=== PATIENT | female | born 1950 | race Caucasian/White ===

== ENCOUNTER 2022-02-24 12:13 | Outpatient (REF) | payer MEDICARE, OTHER, SELFPAY ==
[2022-02-24 12:32] LABS: MANUAL DIFF FLAG NO
[2022-02-24 13:22] LABS: Basophils Percent Auto 0.4 % (0-2); Eosinophils Percent Auto 0.2 % (0-4); Hemoglobin 12.6 g/dl (12.0-16.0); Imm Gran Abs Auto 0.01 X10*3/uL (0.00-0.03); Imm Gran Pct Auto 0.2 % (0.0-0.4); Lymphocytes Absolute Auto 1.6 X10*3/uL (1.2-4.9); Lymphocytes Percent Auto 34.4 % (20-40); Mean Corpuscular HGB Conc 31.5 g/dl (31.0-35.0); Mean Corpuscular Volume 95.2 fL (80.0-98.0); Mean Platelet Volume 9.6 fL (9.4-12.3); Monocytes Absolute Auto 0.4 X10*3/uL (0.1-1.2); Monocytes Percent Auto 7.6 % (2-11); Neutrophils Absolute Auto 2.7 x10*3/uL (2.0-8.3); Neutrophils Percent Auto 57.2 % (45-73); Platelet Count 256 X10*3/uL (160-400); Red Cell Distribution Width 13.6 % (11.0-16.0); White Blood Count 4.7 X10*3/uL (4.8-10.8)
[2022-02-24 13:41] LABS: Anion Gap 12 (12-20); Blood Urea Nitrogen 11 mg/dL (9-16); Calcium 8.9 mg/dL (8.4-10.2); Carbon Dioxide 29 mmol/L (22-29); Chloride 104 mmol/L (96-108); Estimated Glomerular Filt Rate > 60; Glucose Random 76 mg/dL (60-115); Rheumatoid Factor < 15.0 IU/mL (<15.0); Sodium 140 mmol/L (135-145)
[2022-02-24 14:01] LABS: Erythrocyte Sedimentation Rate 10 MM/HR (0-20)
[2022-02-25 08:05] LABS: Syphilis Screen Nonreactive (Nonreactive)
[2022-02-26 08:51] LABS: Lyme Abs Screen <0.90 index
[2022-02-28 12:37] LABS: IgA 56 mg/dL (70-320); IgG 582 mg/dL (600-1540); IgM 394 mg/dL (50-300)
[2022-02-28 14:37] LABS: Anti Nuclear Antibody Screen NEGATIVE (NEGATIVE)
== END 2022-02-24 12:14 | disposition home or self-care (01) ==
LOC: HO.LAB 12:13
PROVIDERS: Visit Provider Psychiatry & Neurology Neurology
DX: G37.9 Demyelinating disease of central nervous system, unspecified (principal)
CPT/HCPCS: 36415; 80048; 82784; 85025; 85652; 86038; 86039; 86431; 86617; 86618; 86780

== ENCOUNTER 2022-04-20 06:55 | Outpatient (REF) | payer MEDICARE, OTHER, SELFPAY ==
[2022-04-20] VITALS (7 sets, daily range): BP systolic 112–127; BP diastolic 58–81; PULSE 56–65; RESP 16; TEMP 36.7–37.2; O2SAT 97–98; BMI 23.8
[2022-04-20 09:37] LABS: CSF Appearance Clear, Colorless; CSF Tube # 1
[2022-04-20 09:47] LABS: Glucose CSF 62 mg/dL; Total Protein CSF 51.8 mg/dL (15-45)
[2022-04-20 11:40] LABS: Appearance CSF CLEAR; CSF Tube # 4; Color CSF COLORLESS; Red Blood Cell CSF 0 MM*3; White Blood Cell CSF 0 MM*3
[2022-04-21 07:10] LABS: Oligoclonal Serum Yes
--- NOTE | 2022-04-21 11:17 | OP_ITS ---
SURGEON: Nevin Flowers MD PREOPERATIVE DIAGNOSIS: POSTOPERATIVE DIAGNOSIS: PROCEDURE PERFORMED: ESTIMATED BLOOD LOSS: COMPLICATIONS: ANESTHESIA: ASSISTANTS: SPECIMENS: PROCEDURES: Lumbar puncture. INDICATION: Possible MS. DESCRIPTION OF PROCEDURE: Risks and benefits of lumbar puncture were discussed with her including possibility of low back pain, nerve injury infection, intractable headache that sometime required similar procedure for treatment, leg pain, numbness, weakness, and allergy to local anesthesia. She was placed in left lateral position. Lower lumbar area was cleaned with Betadine and draped. 1% lidocaine was injected in L4-L5 space. Thus, CSF needle was introduced without difficulty. Opening pressure was 9 cm water. About 5-6 cc of clear CSF was obtained. Trocar was replaced and needle removed. Area was cleaned and a Band-Aid applied. Patient tolerated procedure quite well and CSF was sent to the lab. MD LILIAN Santana/MODL / [id number]
[2022-04-24 12:17] LABS: Albumin 3.9 g/dL (3.2-4.6); Albumin, CSF 33.6 mg/dL (8.0-42.0); IgG 511 mg/dL (600-1540); IgG Synthesis Rate -0.1 mg/24 h (-9.9-3.3); IgG, CSF 2.3 mg/dL (0.8-7.7)
== END 2022-04-20 10:59 | disposition home or self-care (01) ==
LOC: HO.MS 06:55
PROVIDERS: Visit Provider Psychiatry & Neurology Neurology
PROC: 009U3ZZ Drainage of Spinal Canal, Percutaneous Approach (ICD-10-PCS; CPT 62270; principal; 2022-04-20 08:00)
DX: G37.9 Demyelinating disease of central nervous system, unspecified (principal); I67.89 Other cerebrovascular disease; G47.33 Obstructive sleep apnea (adult) (pediatric); F32.9 Major depressive disorder, single episode, unspecified; R40.4 Transient alteration of awareness; K21.9 Gastro-esophageal reflux disease without esophagitis; Z79.899 Other long term (current) drug therapy; Z99.89 Dependence on other enabling machines and devices; Z98.84 Bariatric surgery status
CPT/HCPCS: 62270; 82042; 82945; 83916; 84157; 87015; 87070; 87205; 89051